=== PATIENT | female | born 1975 | race Caucasian/White ===

== ENCOUNTER 2017-09-26 07:13 | Day surgery (SDC) | payer OTHER ==
[2017-09-26] MEDS ORDERED: Lactated Ringers 1,000 ML IV SCH (07:15)
[2017-09-26] MEDS ORDERED: Sodium Chloride 0.9% 10 ML Syringe FLUSH PRN (07:15)
[2017-09-26] MEDS ORDERED: Midazolam 1 MG/ML 2 ML SDV IV ONE (08:30)
[2017-09-26] MEDS ORDERED: Propofol 200 MG/20 ML SDV IV ONE (08:30)
--- NOTE | 2017-09-26 08:55 | PCM.OPNOTE ---
- General Post-Op/Procedure Note Date of Surgery/Procedure: 09/26/17 Operative Procedure(s): c scope Findings: normal exam Pre Op Diagnosis: screening Post-Op Diagnosis: Same Anesthesia Technique: MAC Primary Surgeon: Sunny Morales Anesthesia Provider: Lydia Arnett Pathology: none Complications: None Condition: Good Free Text/Narrative:: see dictation
--- NOTE | 2017-09-26 15:24 | OR ---
DATE OF OPERATION: 09/26/2017 SURGEON: Sunny Morales MD PROCEDURE PERFORMED: Colonoscopy. PREOPERATIVE DIAGNOSIS: Need for screening C-scope. POSTOPERATIVE DIAGNOSIS: Normal colon. INDICATIONS FOR PROCEDURE: This is a 42-year-old white female, who is referred for colonoscopy. She was offered and accepted same. DESCRIPTION OF OPERATION: After an excellent IV sedation was administered, digital rectal exam was performed. No marked abnormality was noted. The flexible colonoscope was inserted and advanced to the cecum without difficulty. The prep was excellent. The following findings were noted. Ascending colon, unremarkable. Transverse colon, unremarkable. Descending colon, unremarkable. Sigmoid and rectum unremarkable. Colon was deflated as the scope was removed. The patient tolerated the procedure well and was taken to recovery room in good condition. /[id number] /MODL
== END 2017-09-26 09:45 | disposition home or self-care (01) ==
LOC: FB.SDS 07:13
PROVIDERS: ATTEND Surgery
DX: Z12.11 Encounter for screening for malignant neoplasm of colon (principal); F41.9 Anxiety disorder, unspecified; F32.9 Major depressive disorder, single episode, unspecified; Z80.0 Family history of malignant neoplasm of digestive organs; Z79.899 Other long term (current) drug therapy; Z88.8 Allergy status to other drugs, medicaments and biological substances; Z87.891 Personal history of nicotine dependence
CPT/HCPCS: 45378; J7120; J2250; J2704

== ENCOUNTER 2022-05-04 12:37 | Emergency (ER) | payer OTHER ==
[2022-05-04] MEDS ORDERED: Cyclobenzaprine 10 MG Tab PO ONE ×2 (12:38→13:00)
== END 2022-05-04 13:42 | disposition home or self-care (01) ==
LOC: FB.ED 12:37
DX: M62.830 Muscle spasm of back (principal); Z88.8 Allergy status to other drugs, medicaments and biological substances; Z79.899 Other long term (current) drug therapy
CPT/HCPCS: 99283; A9270